=== PATIENT | female | born 1950 ===

== ENCOUNTER → 2021-12-22 06:50 | Outpatient (CLI) | payer MEDICARE, SELFPAY ==
--- NOTE | ~2021-12-22 | MR_ITS ---
EXAMINATION: MR shoulder RT wo con DATE: 12/22/2021 07:56 INDICATION: Shoulder pain with biceps injury TECHNIQUE: Magnetic resonance imaging (MRI) of the right shoulder was performed without intravenous c ontrast. Sequences included axial PD-weighted FS FSE, coronal oblique PD-weighted FS FSE, coronal obl ique T2-weighted FS FSE, sagittal PD-weighted FS FSE, and sagittal T1-weighted SE. COMPARISON: None. FINDINGS: Coracoacromial arch: The acromion undersurface is minimally curved in morphology (type I-II). Small anterior subacromial s pur at the acromial insertion of the normal coracoacromial ligament. Moderate acromioclavicular osteo arthritis. Rotator cuff: Moderate supraspinatus and mild infraspinatus tendinopathy. There is a small full-thickness tear celia g the central aspect of the superior facet footplate of the supraspinatus tendon which measures 5 mm AP and medial to lateral. There is partial thickness articular sided tearing extending a short distan ce anteriorly and posteriorly from the full-thickness portion of the tear. Mild subscapularis tendino veto with tear involving the cephalad two thirds of the lesser tuberosity footplate of the tendon. T he caudal third of the tendon as well as the dorsal side remain intact, the latter remain contiguous with the intact transverse humeral ligament. There is medial retraction of the torn central and artic ular sides of the tendon but without a clearly defined tear plane. This results in attenuation of the distal 3 cm of the cephalad two thirds of the tendon. There is mild to moderate fatty atrophy of the subscapularis muscle belly. Biceps tendon, glenoid labrum and glenohumeral cartilage: Full-thickness tear of the long head of the biceps tendon with proximal retraction of the frayed hedy cular portion of the tendon which is folded upon itself in the region of the medial aspect of the rot ator cuff interval. The attenuated and frayed distal tear margin can be seen at the intertubercular g roove. There is diffuse degenerative tearing of the glenoid labrum which is diminutive and in places partially replaced by small marginal osteophytes along the rim of the glenoid. There is mild nonunifo rm partial-thickness cartilage loss with smooth chondral surface along the glenoid and humeral head m ost prominent at the apex and inferomedial aspect of the humeral head. Degenerative subchondral hartley es. Fluid: Small glenohumeral joint effusion with extension of a small amount of fluid into the subacromial/subd eltoid bursa through the full-thickness rotator cuff tear defect. No loose osteochondral bodies. Bones: Normal marrow signal with no edema, fracture or abnormal marrow replacing process. IMPRESSION: 1. Moderate supraspinatus tendinopathy with articular sided tear along the superior facet footplate w ith central 5 mm wide full-thickness component. 2. Mild subscapularis tendinopathy with tear involving the cephalad two thirds of the lesser tuberosi ty footplate with intact bursal side of the tendon which remains contiguous with the transverse humer al ligament. 3. Full-thickness tear and fraying of the long head biceps tendon. 4. Mild glenohumeral osteoarthritis with diffuse labral degeneration. 5. Moderate acromioclavicular osteoarthritis. Reviewed, dictated and finalized at location A. IMPRESSION: 1. Moderate supraspinatus tendinopathy with articular sided tear along the supe rior facet footplate with central 5 mm wide full-thickness component. 2. Mild subscapularis tendinopathy with tear involving the cephalad two thirds of the lesser tuberosity footplate with intact bursal side of the tendon which remains contiguous with the transverse humeral ligament. 3. Full-thickness tear and fraying of the long
== END ==
PROVIDERS: PCP Family Medicine
DX: S46.111A Strain of muscle, fascia and tendon of long head of biceps, right arm, initial encounter (principal); M75.101 Unspecified rotator cuff tear or rupture of right shoulder, not specified as traumatic; M19.011 Primary osteoarthritis, right shoulder
CPT/HCPCS: 73221